=== PATIENT | female | born 1990 | race Caucasian/White ===

== ENCOUNTER 2017-10-17 10:49 | Outpatient (CLI) | payer BC ==
[~2017-10-17] VITALS: Ht 170.2 cm; Wt 72.8 kg
[2017-10-17 11:31] LABS: HEMATOCRIT 40.2 % (37.0-47.0); HEMOGLOBIN 14.2 g/dl (12.5-16.0); MEAN CELL VOLUME 83 fl (80.0-100.0); MEAN CORPUSCULAR HEMOGLOBIN 29 pg (27.0-31.0); MEAN CORPUSCULAR HGB CONC 35 g/dl (33.0-37.0); MEAN PLATELET VOLUME 10.7 fl (7.4-10.4); PLATELET COUNT 263 K/mm3 (130-400); RED BLOOD COUNT 4.85 M/mm3 (4.10-5.30); REDCELL DISTRIBUTION WIDTH-CV 12.1 % (11.5-14.5)
[2017-10-17] MEDS ORDERED: PHENERGAN 25 TA25 MG PO (11:32)
[2017-10-17 11:38] LABS: ALBUMIN 4.4 gm/dL (3.5-5.0); BILIRUBIN,TOTAL 1.8 mg/dL (0.0-1.0); CALCIUM 11.5 mg/dL (8.4-10.2); CREATININE, serum 0.65 mg/dL (0.52-1.25); TOTAL PROTEIN 8.4 gm/dL (6.4-8.2)
[2017-10-17 11:46] VITALS: BP 113/47; PULSE 79; TEMP 97.6
[2017-10-17 12:19] LABS: ANISOCYTOSIS 1+; BAND 1 % (0-10); LYMPHOCYTE 5 % (20.0-51.0); MICROCYTOSIS 1+; MYELOCYTE 2 % (0-0); NEUTROPHILS 90 % (42.0-75.2); PLATELET ESTIMATE NORMAL (NORMAL)
== END 2017-10-17 15:45 | disposition home or self-care (01) ==
LOC: EUO 10:49
PROVIDERS: Obstetrics & Gynecology
DX: O21.0 Mild hyperemesis gravidarum (principal)
CPT/HCPCS: J2405; J7030

== ENCOUNTER 2017-11-05 15:45 | Outpatient (CLI) | payer BC, MEDICAID ==
[~2017-11-05] VITALS: Ht 170.2 cm; Wt 72.7 kg
[~2017-11-05 15:45] MED LIST: PHENERGAN 25 TA25 MG PO
[2017-11-05 16:31] VITALS: BP 133/62; PULSE 88; TEMP 97.9
== END 2017-11-05 18:33 | disposition home or self-care (01) ==
LOC: EUO 15:45
DX: O21.0 Mild hyperemesis gravidarum (principal); Z3A.11 11 weeks gestation of pregnancy
CPT/HCPCS: J2405; J7120

== ENCOUNTER → 2018-05-09 | Outpatient (CLI) | payer MEDICAID ==
[2018-05-09 10:38] LABS: URINE 24 HOUR CREATININE 1.5 gm/24 hr (0.8-1.8)
== END ==
LOC: COL.LAB 09:50
PROVIDERS: Obstetrics & Gynecology
DX: Z01.89 Encounter for other specified special examinations (principal)

== ENCOUNTER 2018-05-10 07:06 | Inpatient (IN) | payer MEDICAID ==
[2018-05-10] VITALS (19 sets, daily range): BP systolic 114–140; BP diastolic 66–84; PULSE 62–90; TEMP 97.4–98.5
[~2018-05-10] VITALS: Ht 167.7 cm; Wt 105.5 kg
[2018-05-10 08:13] LABS: BASO % 0.2 % (0.0-2.0); EOS % 0.4 % (0-4.0); GRAN # 7.8 (1.4-6.5); GRAN % 75.4 % (42.2-75.2); LYMPH # 1.7 (1.2-3.4); LYMPH % 16.6 % (20.0-51.0); MEAN CELL VOLUME 83 fl (80.0-100.0); MEAN CORPUSCULAR HEMOGLOBIN 28 pg (27.0-31.0); MEAN CORPUSCULAR HGB CONC 34 g/dl (33.0-37.0); MEAN PLATELET VOLUME 12.2 fl (7.4-10.4); MONO # 0.7 (0.1-0.6); MONO % 6.7 % (1.7-9.3); PLATELET COUNT 202 K/mm3 (130-400); RED BLOOD COUNT 3.93 M/mm3 (4.10-5.30); REDCELL DISTRIBUTION WIDTH-CV 13.8 % (11.5-14.5)
[2018-05-10 08:15] LABS: HEMATOCRIT 32.6 % (37.0-47.0)
[2018-05-10 09:05] LABS: ALBUMIN 3.4 gm/dL (3.5-5.0); BILIRUBIN,TOTAL 0.9 mg/dL (0.0-1.0); CALCIUM 10.6 mg/dL (8.4-10.2); CREATININE, serum 0.55 mg/dL (0.52-1.25); POTASSIUM 3.6 mmol/L (3.4-5.0); TOTAL PROTEIN 6.5 gm/dL (6.4-8.2)
[2018-05-11 05:00] VITALS: BP 121/83; PULSE 79; TEMP 98.5
[2018-05-11 07:54] LABS: HEMOGLOBIN 9.9 g/dl (12.5-16.0)
[2018-05-11 08:30] VITALS: BP 112/73; PULSE 74; TEMP 98.5
[2018-05-11 17:25] VITALS: BP 125/84; PULSE 93; TEMP 98.7
[2018-05-11 19:25] VITALS: BP 134/84; PULSE 85; TEMP 99.1
[2018-05-12 07:28] VITALS: BP 123/70; PULSE 81; TEMP 98.5
[2018-05-12 16:25] VITALS: BP 133/89; PULSE 85; TEMP 98.5
[2018-05-12 19:57] VITALS: BP 125/64; PULSE 94; TEMP 98.4
[2018-05-13 08:10] VITALS: BP 144/70; PULSE 73; TEMP 97.9
[2018-05-13] MEDS ORDERED: PERCOCET 325 MG1 TA2 PO (08:21)
[2018-05-13] MEDS ORDERED: MOTRIN 800800 MG/TAB PO (08:21)
== END 2018-05-13 12:45 | disposition home or self-care (01) | DRG 787 ==
LOC: OB 07:06
PROVIDERS: Obstetrics & Gynecology
PROC: 10D00Z1 Extraction of Products of Conception, Low, Open Approach (ICD-10-PCS; principal; 2018-05-10)
DX: O32.1XX0 Maternal care for breech presentation, not applicable or unspecified (principal); O98.32 Other infections with a predominantly sexual mode of transmission complicating childbirth; O44.43 Low lying placenta NOS or without hemorrhage, third trimester; O14.04 Mild to moderate pre-eclampsia, complicating childbirth; Z3A.37 37 weeks gestation of pregnancy; Z37.0 Single live birth; O99.214 Obesity complicating childbirth; Z28.21 Immunization not carried out because of patient refusal; A60.09 Herpesviral infection of other urogenital tract
CPT/HCPCS: J0690; J1885; J2370; J2405; J2590; J7120